=== PATIENT | male | born 1990 | race Hispanic/Latino ===

== ENCOUNTER 2022-06-17 13:22 | Emergency (ER) | payer SELFPAY ==
[2022-06-17 13:36] VITALS: BP 131/91
[2022-06-17] MEDS ORDERED: ZPAK PO ×3 (13:49→15:59)
[2022-06-17] MEDS ORDERED: OFLOXACIN0.3 % OU ×3 (13:49→15:59)
[2022-06-17 14:04] VITALS: BP 131/91
== END 2022-06-17 14:08 | disposition home or self-care (01) | DRG 153 ==
LOC: ED 13:22
DX: J06.9 Acute upper respiratory infection, unspecified (principal); H10.33 Unspecified acute conjunctivitis, bilateral